=== PATIENT | male | born 2000 | race Caucasian/White ===

== ENCOUNTER 2019-08-05 16:32 | Emergency (ER) | payer OTHER ==
[~2019-08-05] VITALS: Ht 190.5 cm; Wt 97.5 kg
[2019-08-05] MEDS ORDERED: KEFLEX500 M2 PO (17:56)
[2019-08-05 18:59] VITALS: BP 130/85
== END 2019-08-05 19:00 | disposition home or self-care (01) ==
LOC: M.ERS 16:32
DX: S61.211A Laceration without foreign body of left index finger without damage to nail, initial encounter (principal); Z88.1 Allergy status to other antibiotic agents; Z88.0 Allergy status to penicillin; Z88.8 Allergy status to other drugs, medicaments and biological substances; W31.2XXA Contact with powered woodworking and forming machines, initial encounter; Y93.89 Activity, other specified; Y92.89 Other specified places as the place of occurrence of the external cause; Y99.8 Other external cause status